=== PATIENT | female | born 1935 | race Caucasian/White ===

== ENCOUNTER 2017-03-24 11:26 | Emergency (ER) | payer OTHER ==
[~2017-03-24] VITALS: Ht 165.1 cm; Wt 69.9 kg
--- NOTE | 2017-03-24 11:40 | NUR ---
SENT FROM URGENT CARE C/O FACIAL ABRASIONS S/P TRIP AND FALL ON SIDEWALK, DENIES LOC, NECK, OR BACK PAIN, NAD NOTED, VSS, RESP EVEN AND UNLABORED, WAITING FOR MD EVAL.
[2017-03-24] MEDS ORDERED: ACETAMINOPHEN ES 500 MG TABLET ONE (11:57)
[2017-03-24] MEDS ORDERED: ACETAMINOPHEN 325 MG TABLET PO ONE (12:00)
[2017-03-24 12:52] VITALS: BP 145/80
--- NOTE | 2017-03-24 12:54 | NUR ---
Patient discharged to home in stable condition. Written and verbal after care instructions given. Patient verbalizes understanding of instruction. Prescription given.
== END 2017-03-24 12:55 | disposition home or self-care (01) ==
LOC: ER 11:34
DX: S61.212A Laceration without foreign body of right middle finger without damage to nail, initial encounter (principal); S00.33XA Contusion of nose, initial encounter; S60.221A Contusion of right hand, initial encounter; W01.0XXA Fall on same level from slipping, tripping and stumbling without subsequent striking against object, initial encounter; Y93.89 Activity, other specified; Y92.89 Other specified places as the place of occurrence of the external cause; Y99.8 Other external cause status
CPT/HCPCS: 12001; 70450; 73120; 99284; A4606; Z7610

== ENCOUNTER 2022-03-20 11:29 | Emergency (ER) | payer OTHER ==
[~2022-03-20] VITALS: Ht 167.6 cm; Wt 68.0 kg
--- NOTE | 2022-03-20 12:18 | NUR ---
established iv line left ac 20g
[2022-03-20 12:36] LABS: BASOPHILS % (AUTO) 0.3 % (0.0-2.0); EOSINOPHILS % (AUTO) 1.2 % (0.0-6.0); HEMATOCRIT 42 % (33-45); HEMOGLOBIN 13.5 g/dL (11.5-14.8); LYMPHOCYTES # (AUTO) 1.1 K/uL (0.8-4.8); MEAN CORPUSCULAR HGB CONC 32 g/dl (31.0-36.0); MEAN CORPUSCULAR VOLUME 89 fL (82-100); MONOCYTES # (AUTO) 0.8 K/uL (0.1-1.30); MONOCYTES % (AUTO) 9.6 % (2.0-12.0); NEUTROPHILS # (AUTO) 6.6 K/uL (1.8-8.9); NEUTROPHILS % (AUTO) 75.9 % (43.0-81.0); PLATELET COUNT (AUTO) 168 K/uL (150-450); RED BLOOD CELL COUNT(AUTO) 4.77 MIL/uL (4.0-5.2); WHITE BLOOD COUNT (AUTO) 8.7 K/uL (4.3-11.0)
[2022-03-20 12:39] LABS: CALCIUM, SERUM 8.1 mg/dL (8.5-10.1); CREATININE 0.9 mg/dL (0.6-1.3)
[2022-03-20] MEDS ORDERED: LIDOCAINE /MPF 1% VIAL 5 ML VIAL ONE (13:00)
[2022-03-20] MEDS ORDERED: LIDOCAINE HCL/MPF 1% 30 ML VIAL IJ ONE (13:06)
[2022-03-20] MEDS: CLINDAMYCIN 600 MG in IV D5W 100 ML IV ONE (13:31)
--- NOTE | 2022-03-20 13:31 | NUR ---
DR LEUNG AT BEDSIDE FOR I&D
[2022-03-20] MEDS: LIDOCAINE /MPF 1% VIAL 5 ML VIAL IJ ONE (13:32)
--- NOTE | 2022-03-20 13:35 | NUR ---
at bedside for procedure
[2022-03-20] MEDS ORDERED: AMOX-430 PO (14:23)
[2022-03-20 14:28] VITALS: BP 151/69
--- NOTE | 2022-03-20 14:28 | NUR ---
Patient discharged to home in stable condition. Written and verbal after care instructions given. Patient verbalizes understanding of instruction.
--- NOTE | 2022-03-20 14:28 | NUR ---
IV removed. Catheter intact and site benign. Pressure and 4x4 applied to site. No bleeding noted.
== END 2022-03-20 14:29 | disposition home or self-care (01) ==
LOC: ER 11:46
DX: K13.0 Diseases of lips (principal); J44.9 Chronic obstructive pulmonary disease, unspecified; Z60.2 Problems related to living alone
CPT/HCPCS: 99284; 10160; 96365; 76536; 85025; 80048; 36415; J3490 ×2; J7060